=== PATIENT | female | born 1945 | race Caucasian/White ===

== ENCOUNTER 2016-09-03 14:39 | Outpatient (CLI) | payer MEDICARE, BC | END 2016-09-03 23:59 | disposition home or self-care (01) | LOC: WOU 14:39 | PROVIDERS: ATTEND Surgery | PROC: 0HB7XZX Excision of Abdomen Skin, External Approach, Diagnostic (ICD-10-PCS; principal; 2016-09-03) | DX: K94.09 Other complications of colostomy (principal); L98.8 Other specified disorders of the skin and subcutaneous tissue; K50.90 Crohn's disease, unspecified, without complications; I10 Essential (primary) hypertension; Z87.891 Personal history of nicotine dependence; M19.90 Unspecified osteoarthritis, unspecified site; I65.23 Occlusion and stenosis of bilateral carotid arteries; K43.2 Incisional hernia without obstruction or gangrene | CPT/HCPCS: 11100; 88305 ×2; 88312; A6402 ==